=== PATIENT | male | born 1990 | race African-American/Black ===

== ENCOUNTER 2022-10-29 08:12 | Emergency (ER) | payer BC ==
[2022-10-29] MEDS ORDERED: Ondansetron ODT 4 MG TAB ONE (08:52)
[2022-10-29] MEDS ORDERED: Acetaminophen 500 MG TAB ONE (08:52)
[2022-10-29 09:28] LABS: SARS-CoV-2 NAA Rapid Test Not Detected (NotDetected)
[2022-10-29] MEDS ORDERED: Ketorolac Tromethamine 30 MG/ML VIAL ONE (09:35)
== END 2022-10-29 11:10 | disposition home or self-care (01) ==
LOC: CSHERS 08:12
DX: J11.1 Influenza due to unidentified influenza virus with other respiratory manifestations (principal); Z20.822 Contact with and (suspected) exposure to COVID-19
CPT/HCPCS: 96372; 99284; J1885; Q0162